=== PATIENT | male | born 1945 | race Caucasian/White ===

== ENCOUNTER 2023-10-25 15:56 | Emergency (ER) | payer OTHER, SELFPAY ==
[2023-10-25 15:59] VITALS: BP 115/78
[2023-10-25 16:27] VITALS: BMI 21.5
[2023-10-25 16:45] LABS: % Basophils 0.1 % (0-2); % Eosinophils 0.1 % (0-6); % Immature Granulocytes 0.9 % (0-0.5); % Lymphocytes 12.3 % (20.5-51.1); % Monocytes 10.2 % (1.7-9.3); % Neutrophils 76.4 % (42.2-75.2); Absolute Immature Granulocytes 0.1 10^3/uL (0-0.05); Absolute Lymphocytes 0.9 10^3/uL (1.2-3.4); Absolute Monocytes 0.8 10^3/uL (0.1-0.6); Absolute Neutrophils 5.8 10^3/uL (1.4-6.5); Hematocrit 42.8 % (39.0-52.0); Mean Corpuscular Volume 94.1 fL (80.0-94.0); Mean Platelet Volume 10.9 fL (7.4-10.4); Nucleated Red Blood Cells % 0 % (-); Platelet Count 206 10^3/uL (130-400); Red Blood Cell Count 4.55 10^6/uL (4.70-6.10); Red Cell Dist. Width 12.2 % (11.5-14.5); White Blood Cell Count 7.6 10^3/uL (4.8-10.8)
[2023-10-25 17:02] LABS: ALT (SGPT) 64 U/L (0-50); AST (SGOT) 130 U/L (17-59); Albumin 3.8 g/dl (3.5-5.0); Alkaline Phosphatase 83 U/L (38-126); Blood Urea Nitrogen 43 mg/dl (9-20); Calcium 8.4 mg/dl (8.4-10.2); Carbon Dioxide 32 mmol/L (22-30); Chloride 98 mmol/L (98-107); Estimated Creatinine Clearance 57 ml/min; Glucose 96 mg/dl (70-99); Potassium 4.9 mmol/L (3.5-5.1); Sodium 135 mmol/L (135-145); Total Bilirubin 0.8 mg/dl (0.2-1.3); Total Protein 6.8 g/dl (6.3-8.2); eGFR > 60.00
[2023-10-25 17:09] LABS: COVID-19 Antigen Positive (Negative)
--- NOTE | 2023-10-25 17:36 | ED.GENMED ---
History of Present Illness
<ALY Kennedy - Last Filed: 10/27/23 19:17>
General
Chief Complaint: Breathing Problem
Source: patient and significant other
Exam Limitations: none
Time Seen by Provider: 10/25/23 16:57
Travel History
Have you had any contact with someone who has COVID-19?: No
Do you have any symptoms of coronavirus? Fever > 100 degrees, chills, cough, shortness of breath, sore throat, loss of taste or smell, muscle aches, or headache?: No
History of Present Illness
History of Present Illness:
This is a 78 y/o male with a PMH of HTN, emphysema, and DM type II who presents to the ED c/o SOB with GONZALEZ that started with congestion, productive cough, and generalized weakness about 1.5 weeks ago. He admits to one episode of coughing up
brown-tinged mucous a few days ago. He states that his became sick with similar symptoms at the same time but has since improved. He is prescribed albuterol, Symabicort, Spiriva, and home oxygen for his emphysema but denies improvement when
used for his current symptoms. He admits improvement with cold air. He denies fever, chills, nausea, vomiting, headache, chest pain, palpitations, PND, abdominal pain, diarrhea, and constipation. He reports decreased solid food intake over the last
few days and admits to drinking 'nutrition drinks' to make up for it.
Past History
<ALY Kennedy - Last Filed: 10/27/23 19:17>
Past History
ED Past Medical History: Cancer, COPD, HTN, Hypercholesterolemia, NIDDM and Other (Agree with documented history)
ED Past Surgical History: Appendectomy, Orthopedic and Other (Hernia repair, Agree with documented history)
Social History
Tobacco: Non-smoker
Alcohol: Occasional
Drug: None
Personal:
Living: with family
Employment: Employed
Review of Systems
<ALY Kennedy - Last Filed: 10/27/23 19:17>
Review of Systems
All Other Systems: ROS reviewed and negative except as documented in HPI and ROS
Constitutional: Reports no symptoms; Denies fever or chills
EENT: Reports runny nose
Respiratory: Reports cough, hemoptysis and trouble breathing
Cardiac: Reports no symptoms; Denies chest pain or palpitations
ABD/GI: Reports anorexia; Denies abdominal pain, nausea, vomiting, diarrhea or constipated
Skin: Reports no symptoms
Neurological: Reports weakness
Phy Exam
<ALY Kennedy - Last Filed: 10/27/23 19:17>
General Physical Exam
General Presentation: well appearing and no apparent distress
General age: appears stated age
General Skin: feels hot
General Habitus: normal
General Mental: alert
General Hydration: dry mucous membranes
ENT Exam
ENT Exam: neck supple and pharyngeal erythema
Additional ENT: Postnasal drip
Cardiovascular Exam
Cardiovascular Exam: normal peripheral pulses, tachycardia and other (Regular rhythm)
Pulmonary Exam
Pulmonary Exam: no respiratory distress and decreased breath sounds (Bilaterally)
Oxygen Status: oxygen 2 liters via NC
Cough: productive cough
Gastrointestinal Exam
Gastrointestinal Exam: normal bowel sounds, non tender, soft, non distended and surgical scar (RLQ)
Palpation: generalized: No tenderness
Abdominal Scars: right lower quadrant
Auscultation of Abdomen: normal
Neurological Exam
Neurological Exam: alert, oriented x3, no motor deficits, no sensory deficits and speech normal
Skin Exam
Skin Exam: normal color and no rash
Scores
<ALY Kennedy - Last Filed: 10/27/23 19:17>
Heart Failure Risk
Heart Failure Risk Score: Not Applicable
Course
<ALY Kennedy - Last Filed: 10/27/23 19:17>
Orders/Labs/Results
Orders:
Orders
10/25/23 16:05
Electrocardiogram (*1) Urgent
Reason for Study: Shortness of Breath
EKG- Treatment ONCE
10/25/23 16:30
Complete Blood Count/With Diff Urgent
Comprehensive Metabolic Panel Urgent
Influenza A+B Rapid Molecular Urgent
LEO Source: Nasal Swab
Specimen Description:
10/25/23 16:31
COVID-19 Antigen Urgent
Source: Nasal Swab
10/25/23 17:44
CR Chest - 2 Views Urgent
Comment:
Reason For Exam: sob
10/25/23 17:45
0.9% Sodium Chloride 500 ml [Nss] 500 ml IV BOLUS
Abnormal Lab Results
10/25/23 10/25/23
16:30 16:31
RBC 4.55 L 10^6/uL
(4.70-6.10)
MCV 94.1 H fL
(80.0-94.0)
MCH 33.0 H pg
(27.0-31.0)
MPV 10.9 H fL
(7.4-10.4)
Abs Immat Gran (auto) 0.1 H 10^3/uL
(0-0.05)
Absolute Lymphs (auto) 0.9 L 10^3/uL
(1.2-3.4)
Absolute Monos (auto) 0.8 H 10^3/uL
(0.1-0.6)
Immature Gran % 0.9 H %
(0-0.5)
Neutrophils % 76.4 H %
(42.2-75.2)
Lymphocytes % 12.3 L %
(20.5-51.1)
Monocytes % 10.2 H %
(1.7-9.3)
Carbon Dioxide 32 H mmol/L
(22-30)
BUN 43 H mg/dl
(9-20)
AST 130 H U/L
(17-59)
ALT 64 H U/L
(0-50)
SARS-CoV-2 Antigen Positive A
(Negative)
10/25/23 16:30
10/25/23 16:30
Vital Signs
Initial and Last Documented VS:
Initial Vital Signs
Temp Pulse Resp BP Pulse Ox
99.4 F 117 22 115/78 91
10/25/23 15:59 10/25/23 15:59 10/25/23 15:59 10/25/23 15:59 10/25/23 15:59
Last Documented Vital Signs
Temp Pulse Resp BP Pulse Ox
99.4 F 98 25 115/78 92
10/25/23 15:59 10/25/23 20:00 10/25/23 20:00 10/25/23 15:59 10/25/23 21:05
<Deonte Yeung MD - Last Filed: 10/25/23 22:43>
Orders/Labs/Results
Orders:
Orders
10/25/23 16:05
Electrocardiogram (*1) Urgent
Reason for Study: Shortness of Breath
EKG- Treatment ONCE
10/25/23 16:30
Complete Blood Count/With Diff Urgent
Comprehensive Metabolic Panel Urgent
Influenza A+B Rapid Molecular Urgent
LEO Source: Nasal Swab
Specimen Description:
10/25/23 16:31
COVID-19 Antigen Urgent
Source: Nasal Swab
10/25/23 17:44
CR Chest - 2 Views Urgent
Comment:
Reason For Exam: sob
10/25/23 17:45
0.9% Sodium Chloride 500 ml [Nss] 500 ml IV BOLUS
Abnormal Lab Results
10/25/23 10/25/23
16:30 16:31
RBC 4.55 L 10^6/uL
(4.70-6.10)
MCV 94.1 H fL
(80.0-94.0)
MCH 33.0 H pg
(27.0-31.0)
MPV 10.9 H fL
(7.4-10.4)
Abs Immat Gran (auto) 0.1 H 10^3/uL
(0-0.05)
Absolute Lymphs (auto) 0.9 L 10^3/uL
(1.2-3.4)
Absolute Monos (auto) 0.8 H 10^3/uL
(0.1-0.6)
Immature Gran % 0.9 H %
(0-0.5)
Neutrophils % 76.4 H %
(42.2-75.2)
Lymphocytes % 12.3 L %
(20.5-51.1)
Monocytes % 10.2 H %
(1.7-9.3)
Carbon Dioxide 32 H mmol/L
(22-30)
BUN 43 H mg/dl
(9-20)
AST 130 H U/L
(17-59)
ALT 64 H U/L
(0-50)
SARS-CoV-2 Antigen Positive A
(Negative)
10/25/23 16:30
10/25/23 16:30
Vital Signs
Initial and Last Documented VS:
Initial Vital Signs
Temp Pulse Resp BP Pulse Ox
99.4 F 117 22 115/78 91
10/25/23 15:59 10/25/23 15:59 10/25/23 15:59 10/25/23 15:59 10/25/23 15:59
Last Documented Vital Signs
Temp Pulse Resp BP Pulse Ox
99.4 F 98 25 115/78 92
10/25/23 15:59 10/25/23 20:00 10/25/23 20:00 10/25/23 15:59 10/25/23 21:05
<ALY Kennedy - Last Filed: 10/27/23 19:17>
MDM/Problems Addressed
MDM/Problems Addressed:
Patient with PMH of HTN, emphysema, and DM type II presents to ED c/o SOB with GONZALEZ that started with congestion, productive cough, and generalized weakness about 1.5 weeks ago. He admits to one episode of coughing up brown-tinged mucous a few days
ago. Physical exam reveals tachycardia. Laboratory testing reveals positive COVID-19. CXR ordered. Pneumonia vs viral syndrome.
<ALY Kennedy - Last Filed: 10/27/23 19:17>
*Critical Care Note
Total Time (30-74mins, 75-104mins- exclusive of procedures): Not Applicable
ED Attending Note
<ALY Kennedy - Last Filed: 10/27/23 19:17>
-
Portions of this chart may have been created with voice recognition software.� Occasional wrong word or��sound alike� substitutions may have occurred due to the inherent limitations of voice recognition software.
<Deonte Yeung MD - Last Filed: 10/25/23 22:43>
ED Attending Note
Patient seen and examined by attending physician: Yes
ED Attending Note:
HPI: 78-year-old male with a past medical history as documented notable for COPD and chronic respiratory failure on 3 to 5 L of home oxygen; he presents accompanied by his today for evaluation of generalized fatigue and flulike illness.
Patient reports onset of symptoms about 10 days ago and have been consistent. He says he is very weak and fatigued more so than usual. He says he has a very poor appetite. Has had some mild nausea. No vomiting. He says he has had a cough and
nasal congestion. He says he feels some very mild shortness of breath although he has not had any increase in his oxygen requirement at home (he regularly checks his pulse oximeter). He says with symptoms persisting for over a week he decided to
come to the hospital to ensure he did not have pneumonia. His was sick with a mild viral illness he says that was much more mild.
ROS: Positive for cough, shortness of breath, congestion, rhinorrhea, fatigue, anorexia, nausea; negative for chest pain, vomiting, diarrhea, abdominal pain, fever, edema
Physical exam:
General: Awake, alert, oriented x3; no acute distress
Head: Normocephalic, atraumatic
Eyes: Conjunctiva normal, sclera anicteric
Throat: Airway intact, handling secretions
Neck: Trachea midline, supple without meningismus
Lungs: Saturating appropriately on 3 L nasal cannula here; supple respiratory rate and normal work of breathing; speaking in full sentences; lungs clear to auscultation bilaterally, no wheezing, rales, rhonchi; occasional coughing
Heart: Regular rate and rhythm, no murmurs, gallops, or rubs
Abd: Soft, non distended, nontender
Neuro: Cranial nerves grossly intact, speech fluid
Skin: no rash
Extremities: No edema in extremities, equal pulses in all extremities
Differential diagnosis: Viral illness including COVID or influenza, pneumonia, anemia, electrolyte derangement/dehydration
Medical decision makin-year-old male presents with his for evaluation of fatigue and flulike illness over the past 10 days. He is tachycardic but has otherwise normal vitals here. Exam as above. Plan to place an IV check labs including
a CBC and CMP; check an EKG and chest x-ray. Swab for COVID and influenza. Will provide some fluids. Monitor closely reassess after the above.
Chronic conditions affecting care: COPD and chronic respiratory failure
Acute exacerbation or progression of chronic illness: N/A
History source: Patient,
Data reviewed: Prior visits, labs
EKG reviewed by me shows sinus tachycardia with rate of 110, narrow complex QRS�normal intervals; no acute ischemic changes compared to prior
Medications/testing considered: N/A
Social determinants of health: N/A
Discussion with other providers: N/A
UPDATE:
Lab called back patient's COVID swab is positive likely accounts for symptoms. Labs reviewed CBC shows no significant abnormalities, CMP shows mild transaminitis likely in the setting of viral illness. Awaiting chest x-ray. Heart rate improving
with fluids. Continue to monitor.
Chest x-ray reviewed by me no clear pneumonia. Patient remains generally well-appearing, heart rate normalized. His pulse ox has been stable throughout prolonged ED observation with no increased oxygen requirement. I think patient is stable for
discharge at this point in time--no clear indication for admission. He is slightly higher risk with his known COPD but patient has been ill for 10 days no clear sign of pneumonia no hypoxia�discussed with patient potentially starting Paxlovid but
patient declined. He feels comfortable with discharge home. He will follow-up with his primary physician. Spoke about return precautions and all questions answered.
ADDENDUM
Radiology over-read on CXR reviewed: concerning for LLL pneumonia. Certainly could be secondary to COVID but given prolonged symptoms and underlying COPD I think patient should be covered with antibiotics. I called the patient to update him. He
is comfortable with this plan. Will follow-up with his primary physician. I did explain that if his shortness of breath is worsening or if his symptoms or not improving he should return to the emergency room.
Discharge Plan
Departure
Patient Disposition: Home (Routine Discharge)
Date of Disposition: 10/25/23
Time of Disposition: 21:13
Patient with high blood pressure during this ER visit?: No
Discharge Problem:
COVID-19
Instructions: COVID-19 (DC)
Prescriptions:
New
levofloxacin 750 mg tablet
750 mg PO DAILY Qty: 7 0RF
No Action
metformin 500 MG tablet
500 mg PO DAILY
atorvastatin 10 MG tablet
10 mg PO DAILY
lisinopril 20 MG tablet
20 mg PO BID
sildenafil 100 MG tablet
100 mg PO DAILY PRN (Reason: ED)
tamsulosin 0.4 MG capsule
0.4 mg PO QPM
hydrochlorothiazide 25 MG tablet
25 mg PO DAILY
ascorbic acid (vitamin C) [Vitamin C] 1,000 mg Tablet
1,000 mg PO DAILY
albuterol sulfate [ProAir HFA] 90 mcg/actuation Hfa Aerosol Inhaler
2 puff INHALATION R Q6 PRN (Reason: sob/wheezing)
budesonide-formoterol [Symbicort] 160-4.5 mcg/actuation Hfa Aerosol Inhaler
2 puff INHALATION R DAILY
metformin 500 mg tablet
1,000 mg PO QPM
albuterol sulfate 2.5 mg /3 mL (0.083 %) solution for nebulization
2.5 mg inhalation R Q4 PRN (Reason: sob/wheezing)
diltiazem HCl 180 mg capsule,extended release 24hr
180 mg PO DAILY
levocetirizine [Xyzal] 5 mg Tablet
5 mg PO QPM
Referrals:
Conrad Kimbrough MD [Family Provider] - Call in 1-3 days for appt
Activity Restrictions/Additional Instructions:
Thank you for visiting the Emergency Department at [facility].
1. Please schedule a follow up appointment as directed. Call first thing tomorrow morning to make an appointment.
2. If indicated, please take your medications as instructed and indicated on discharge paperwork.
3. If any of your symptoms do not improve, or persist, or become more severe within 6-12 hours, please return to the emergency department for further care.
4. Please return to the emergency department if you develop a headache, neck pain/stiffness, fever greater than 100.4F, chest pain, shortness of breath, persistent nausea, vomiting, slurred speech, difficulty walking, numbness/tingling, weakness,
signs of infection or any other symptoms that are worrisome to you.
Please call [phone] if you have any questions.
Interventions
Interventions:
*Risk Screen - Suicide Last Done: 10/25/23 16:28
*General Assessment Last Done: 10/25/23 16:28
*Neglect/Abuse Screening Last Done: 10/25/23 16:28
*Nursing Disposition Last Done: 10/25/23 21:48
ED- Cardiac Assessment Last Done: 10/25/23 16:30
ED- Pulmonary Assessment Last Done: 10/25/23 16:30
Discharge Date and Time
Discharge Date/Time: 10/25/23 21:48
[2023-10-25] MEDS: NSS 500 IV (18:04)
== END 2023-10-25 21:48 | disposition home or self-care (01) ==
LOC: EMR 15:56
PROVIDERS: EMERGENCY PHYSICIAN Emergency Medicine; FAMILY PHYSICIAN Family Medicine
DX: U07.1 COVID-19 (principal); R53.1 Weakness; R63.0 Anorexia; E11.9 Type 2 diabetes mellitus without complications; E78.00 Pure hypercholesterolemia, unspecified; I10 Essential (primary) hypertension; Z79.84 Long term (current) use of oral hypoglycemic drugs; Z91.030 Bee allergy status; Z91.048 Other nonmedicinal substance allergy status
CPT/HCPCS: 99284; 96360; 71046; 80053; 85025; 87502; 87811; 93005

== ENCOUNTER 2024-01-30 15:18 | Emergency (ER) | payer OTHER, SELFPAY ==
[2024-01-30 15:27] VITALS: BP 115/70
[2024-01-30 15:53] LABS: % Basophils 0.3 % (0-2); % Eosinophils 4.5 % (0-6); % Lymphocytes 16.9 % (20.5-51.1); % Monocytes 11.1 % (1.7-9.3); % Neutrophils 66.2 % (42.2-75.2); Absolute Eosinophils 0.5 10^3/uL (0-0.7); Absolute Immature Granulocytes 0.1 10^3/uL (0-0.05); Absolute Lymphocytes 1.7 10^3/uL (1.2-3.4); Absolute Monocytes 1.1 10^3/uL (0.1-0.6); Absolute Neutrophils 6.6 10^3/uL (1.4-6.5); Hematocrit 37.1 % (39.0-52.0); Hemoglobin 12.8 g/dL (13.0-18.0); Mean Corp Hgb Conc. 34.5 g/dL (33.0-37.0); Mean Corpuscular Hgb 33.2 pg (27.0-31.0); Mean Corpuscular Volume 96.4 fL (80.0-94.0); Mean Platelet Volume 10.7 fL (7.4-10.4); Nucleated Red Blood Cells % 0 % (-); Platelet Count 235 10^3/uL (130-400); Red Blood Cell Count 3.85 10^6/uL (4.70-6.10); Red Cell Dist. Width 12.1 % (11.5-14.5)
[2024-01-30 16:11] LABS: NT-proBNP 70.6 pg/ml
[2024-01-30 16:18] LABS: ALT (SGPT) 24 U/L (0-50); AST (SGOT) 29 U/L (17-59); Alkaline Phosphatase 90 U/L (38-126); Blood Urea Nitrogen 27 mg/dl (9-20); Calcium 9.2 mg/dl (8.4-10.2); Carbon Dioxide 32 mmol/L (22-30); Chloride 96 mmol/L (98-107); Glucose 100 mg/dl (70-99); Potassium 4.9 mmol/L (3.5-5.1); Sodium 134 mmol/L (135-145); Total Bilirubin 0.6 mg/dl (0.2-1.3); Total Protein 7.3 g/dl (6.3-8.2); eGFR > 60.00
[2024-01-30 18:11] VITALS: BP 122/79; BMI 22.5
[2024-01-30 19:00] VITALS: BP 132/95
--- NOTE | 2024-01-30 19:08 | ED.GENMED ---
History of Present Illness
General
Chief Complaint: Breathing Problem
Source: patient
Exam Limitations: none
Time Seen by Provider: 01/30/24 18:56
Travel History
Have you had any contact with someone who has COVID-19?: No
Do you have any symptoms of coronavirus? Fever > 100 degrees, chills, cough, shortness of breath, sore throat, loss of taste or smell, muscle aches, or headache?: No
History of Present Illness
History of Present Illness:
See MDM
Past History
Past History
ED Past Medical History: Cancer, COPD, HTN, Hypercholesterolemia, NIDDM and Other (Agree with documented history)
ED Past Surgical History: Appendectomy, Orthopedic and Other (Hernia repair, Agree with documented history)
Social History
Tobacco: Non-smoker
Alcohol: Occasional
Drug: None
Personal:
Living: with family
Employment: Employed
Phy Exam
Physical Exam
Physical Exam:
See MDM
Scores
Heart Failure Risk
Heart Failure Risk Score: Not Applicable
Course
Orders/Labs/Results
Orders:
Orders
01/30/24 15:45
BNP [NT-proBNP] Urgent
Complete Blood Count/With Diff Urgent
Comprehensive Metabolic Panel Urgent
Troponin I Urgent
Comment: ADD ON
01/30/24 18:57
Add On- LAB Urgent
Tests Added?: Troponin
01/30/24 18:58
Electrocardiogram (*1) Urgent
Reason for Study: Shortness of Breath
EKG- Treatment ONCE
01/30/24 19:07
Dexamethasone Sod Phosphate [Decadron] 10 mg IV NOW STA
Ipratropium/Albuterol Sulfate [Duoneb] 3 ml INH R NOW STA
CR Chest - 2 Views Urgent
Comment: Hx COPD
Reason For Exam: SOB, cough
01/30/24 21:03
Azithromycin [Zithromax] 500 mg PO NOW STA
Ipratropium/Albuterol Sulfate [Duoneb] 3 ml INH R NOW STA
Abnormal Lab Results
01/30/24
15:45
RBC 3.85 L 10^6/uL
(4.70-6.10)
Hgb 12.8 L g/dL
(13.0-18.0)
Hct 37.1 L %
(39.0-52.0)
MCV 96.4 H fL
(80.0-94.0)
MCH 33.2 H pg
(27.0-31.0)
MPV 10.7 H fL
(7.4-10.4)
Abs Immat Gran (auto) 0.1 H 10^3/uL
(0-0.05)
Absolute Neuts (auto) 6.6 H 10^3/uL
(1.4-6.5)
Absolute Monos (auto) 1.1 H 10^3/uL
(0.1-0.6)
Immature Gran % 1.0 H %
(0-0.5)
Lymphocytes % 16.9 L %
(20.5-51.1)
Monocytes % 11.1 H %
(1.7-9.3)
Sodium 134 L mmol/L
(135-145)
Chloride 96 L mmol/L
(98-107)
Carbon Dioxide 32 H mmol/L
(22-30)
BUN 27 H mg/dl
(9-20)
Glucose 100 H mg/dl
(70-99)
01/30/24 15:45
01/30/24 15:45
Vital Signs
Initial and Last Documented VS:
Initial Vital Signs
Temp Pulse Resp BP Pulse Ox
99.7 F 90 18 115/70 94
01/30/24 15:27 01/30/24 15:27 01/30/24 15:27 01/30/24 15:27 01/30/24 15:27
Last Documented Vital Signs
Temp Pulse Resp BP Pulse Ox
99.7 F 90 18 132/95 95
01/30/24 15:27 01/30/24 15:27 01/30/24 15:27 01/30/24 19:00 01/30/24 19:15
MDM/Problems Addressed
Differential Diagnosis Includes:
HPI and MDM Narrative:
78-year-old male presenting with shortness of breath with exertion over the past week. He does have a history of COPD and states he has been more reliant on oxygen. He has increased cough with increased sputum production. He denies chest pain.
Patient cannot recall the last time he was on steroids
on exam, patient does have rhonchorous breath sounds.. Blood work was started prior to my evaluation. BNP within normal limits. Will add EKG and troponin
Given his history, will start DuoNeb and IV steroids and obtain chest x-ray
Physical exam
General: Well appearing and non-toxic
HEENT: protecting airway
Neck: appears supple
CV: No evidence of cyanosis. Regular rate and rhythm
Resp: No accessory muscle use. Rhonchorous breath sounds with expiratory wheezing
Abd: Non-distended
Extremities: No deformities. No leg edema
Neuro: alert
Psych: Normal affect
Skin: Intact
Problems Addressed including Acute and Chronic Conditions affecting care:
1. COPD exacerbation
Acuity: acute
Prognosis: stable
Details: Patient started on DuoNebs and IV steroids. Will obtain chest x-ray. Will obtain troponin. Given duration of symptoms, doubt ACS if troponin within normal limit
Updates
9:10 PM patient ambulated and states he is feeling better. His oxygen did dip mildly into the mid 80s but he is on oxygen and has COPD. Chest x-ray without acute abnormality. Given concern for COPD exacerbation, will start azithromycin. I
discussed my concern and suggested admission. Patient acknowledges my concern but wants to reassess in the morning at home and states he will come back if any symptoms worsen. Will write for steroid taper. at bedside did witness this
discussion as well
Differential Diagnosis (but not limited to): COPD exacerbation, pneumonia, ACS, CHF
Testing considered: D-dimer but he is neither tachycardic nor hypoxic
Drug therapy (if applicable): OTC meds, please see d/c instruction regarding Rx drugs
Amount and/or Complexity of Data Reviewed
Clinical info obtained from: Patient
External data reviewed: N/A
Labs I independently reviewed (but not limited to): BMP within normal limits
Radiology: X-ray independently reviewed: Chest x-ray clear
Pulse Ox: hypoxic on room air but stable on home oxygen
EKG independently reviewed: sinus rhythm, normal axis, no STEMI
Exterminator: sinus rhythm
Critical Care: N/A
Risk of Complication:
Social Determinants of health: Good social support
Discussed with other providers: N/A
Escalation of Care includes Admit/Obs: After being observed in the Emergency Department, pt will be discharged discharge. His status is fair but he wants to go home regardless of me suggesting admission.
Occasional wrong word or 'sound a like' substitutions may have occurred due to the inherent limitations of voice recognition software. Read the chart carefully and recognize, using context, where substitutions have occurred.
*Critical Care Note
Total Time (30-74mins, 75-104mins- exclusive of procedures): Not Applicable
ED Attending Note
-
Portions of this chart may have been created with voice recognition software.� Occasional wrong word or��sound alike� substitutions may have occurred due to the inherent limitations of voice recognition software.
Discharge Plan
Departure
Patient Disposition: Home (Routine Discharge)
Date of Disposition: 01/30/24
Time of Disposition: 21:03
Patient with high blood pressure during this ER visit?: No
Discharge Problem:
Acute exacerbation of chronic obstructive pulmonary disease
Instructions: Exacerbation of COPD (DC)
Prescriptions:
New
azithromycin [Zithromax] 250 mg tablet
250 mg PO DAILY Qty: 4 0RF
prednisone 10 mg tablet
See Rx Instructions .ROUTE .COMPLEX Qty: 45 0RF
Rx Instructions:
5 tabs day 1-3, 4 tabs day 4-6, 3 tabs day 7-9, 2 tabs day 10-12, 1 tab day 13-15
No Action
metformin 500 MG tablet
500 mg PO DAILY
atorvastatin 10 MG tablet
10 mg PO DAILY
lisinopril 20 MG tablet
20 mg PO BID
sildenafil 100 MG tablet
100 mg PO DAILY PRN (Reason: ED)
tamsulosin 0.4 MG capsule
0.4 mg PO QPM
hydrochlorothiazide 25 MG tablet
25 mg PO DAILY
ascorbic acid (vitamin C) [Vitamin C] 1,000 mg Tablet
1,000 mg PO DAILY
albuterol sulfate [ProAir HFA] 90 mcg/actuation Hfa Aerosol Inhaler
2 puff INHALATION R Q6 PRN (Reason: sob/wheezing)
budesonide-formoterol [Symbicort] 160-4.5 mcg/actuation Hfa Aerosol Inhaler
2 puff INHALATION R DAILY
metformin 500 mg tablet
1,000 mg PO QPM
albuterol sulfate 2.5 mg /3 mL (0.083 %) solution for nebulization
2.5 mg inhalation R Q4 PRN (Reason: sob/wheezing)
diltiazem HCl 180 mg capsule,extended release 24hr
180 mg PO DAILY
levocetirizine [Xyzal] 5 mg Tablet
5 mg PO QPM
levofloxacin 750 mg tablet
750 mg PO DAILY Qty: 7 0RF
Referrals:
Conrad Kimbrough MD [Family Provider] -
Activity Restrictions/Additional Instructions:
As we discussed, you would benefit from admission. If symptoms are persistent or worse in the morning, please return immediately.
You may return at any time if you have further concerns.
Please follow up with your doctor at the first available appointment, preferably this week.
Thank you for choosing [facility].
Interventions
Interventions:
*Risk Screen - Suicide Last Done: 01/30/24 15:27
*General Assessment Last Done: 01/30/24 15:27
*Neglect/Abuse Screening Last Done: 01/30/24 15:27
ED- Fall Risk Assessment Last Done: 01/30/24 18:11
*ED COVID-19 Vaccine History Last Done: 01/30/24 15:27
ED- Cardiac Assessment Last Done: 01/30/24 18:11
ED- Pulmonary Assessment Last Done: 01/30/24 18:11
Discharge Date and Time
Print Language: KHMER
[2024-01-30] MEDS: DUONEB 3 ML INH ×2 (19:40→21:51)
[2024-01-30 19:41] LABS: Troponin I < 0.012 ng/ml
[2024-01-30] MEDS: DECADRON 10 MG IV (19:42)
[2024-01-30 20:00] VITALS: BP 98/64
[2024-01-30 21:00] VITALS: BP 119/76
[2024-01-30] MEDS: ZITHROMAX 500 MG PO (21:51)
[2024-01-30 22:38] VITALS: BP 109/68
== END 2024-01-30 22:57 | disposition home or self-care (01) ==
LOC: EMR 15:18
PROVIDERS: Emergency Medicine; EMERGENCY PHYSICIAN Student in an Organized Health Care Education/Training Program; FAMILY PHYSICIAN Family Medicine
DX: J44.1 Chronic obstructive pulmonary disease with (acute) exacerbation (principal)
CPT/HCPCS: 99285; 96374; 94640; 71046; 80053; 83880; 84484; 85025; 93005

== ENCOUNTER → 2024-02-21 08:56 | Outpatient (REF) | payer OTHER, SELFPAY | LOC: RAD 08:56 | PROVIDERS: ATTENDING PHYSICIAN Nurse Practitioner Adult Health; FAMILY PHYSICIAN Family Medicine | DX: J18.9 Pneumonia, unspecified organism (principal); J44.1 Chronic obstructive pulmonary disease with (acute) exacerbation; R06.02 Shortness of breath; R09.02 Hypoxemia | CPT/HCPCS: 71250 ==

== ENCOUNTER → 2024-04-24 13:06 | Outpatient (REF) | payer OTHER, SELFPAY | LOC: RAD 13:06 | PROVIDERS: ATTENDING PHYSICIAN Family Medicine | DX: R91.8 Other nonspecific abnormal finding of lung field (principal) | CPT/HCPCS: 71046 ==

== ENCOUNTER → 2024-05-15 08:35 | Outpatient (REF) | payer OTHER, SELFPAY | LOC: RAD 08:35 | PROVIDERS: ATTENDING PHYSICIAN Family Medicine | DX: R91.8 Other nonspecific abnormal finding of lung field (principal) | CPT/HCPCS: 71260; Q9967 ==

== ENCOUNTER → 2025-01-10 10:13 | Outpatient (REF) | payer OTHER, SELFPAY | LOC: RAD 10:13 | PROVIDERS: ATTENDING PHYSICIAN Family Medicine | DX: R06.02 Shortness of breath (principal); J44.9 Chronic obstructive pulmonary disease, unspecified; J43.1 Panlobular emphysema | CPT/HCPCS: 71046 ==